=== PATIENT | male | born 1950 ===

== ENCOUNTER 2023-02-01 20:27 | Emergency (ER) | payer OTHER, MEDICAID ==
[~2023-02-01 20:27] MED LIST: Dextrose 5 % And 0.9 % NaCl 1000 ml Bag ONE
[2023-02-01 21:01] LABS: Anisocytosis SLIGHT = 6-15 cells (100X) (0-5/hpf); Band 1 % (5-11); Eosinophils 1 % (0-10); Hemoglobin 8.7 g/dL (14.0-18.0); Lymphocytes 12 % (21-51); MDiff Complete? YES; Mean Corpuscular HGB CONC 30.9 g/dL (32.0-36.0); Mean Corpuscular Hemoglobin 25.4 pg (27.0-31.0); Mean Corpuscular Volume 82.3 fl (78.0-98.0); Mean Platelet Volume 8.8 fL (7.4-10.4); Monocytes 6 % (0-10); Neutrophil 80 % (42-75); Ovalocytes SLIGHT = 2-5 cells (100X) (0-1/hpf); Platelet Adequacy Comment Appears Adequate; Platelet Count 345 10x3/uL (130-400); Red Blood Cell (RBC) Count 3.41 mill/uL (4.70-6.10)
[2023-02-01 21:09] LABS: ALT (SGPT) 8 U/L (8-55); AST (SGOT) 11 U/L (5-34); Albumin 3.6 g/dL (3.4-4.8); Alkaline Phosphatase 58 U/L (40-110); Anion Gap 17 mmol/L (10-20); BUN (Urea Nitrogen) 10 mg/dL (8.4-25.7); Bilirubin, Total 0.3 mg/dL (0.2-1.2); CK (CPK) 19 U/L (30-200); Calc. Creatinine Clearance 0 mL/min (70-130); Calcium 8.5 mg/dL (7.8-10.44); Carbon Dioxide 19 mmol/L (23-31); Chloride 106 mmol/L (98-107); Estimated GFR 59; Globulin 3.7 g/dL (2.4-3.5); Glucose 81 mg/dL (83-110); Potassium 4.1 mmol/L (3.5-5.1); Protein, Total 7.3 g/dL (5.8-8.1)
[2023-02-01 21:58] LABS: Sodium 138 mmol/L (136-145)
== END 2023-02-01 22:45 | disposition home or self-care (01) ==
LOC: MADERS 20:27
DX: E16.2 Hypoglycemia, unspecified (principal); D64.9 Anemia, unspecified; I10 Essential (primary) hypertension; E03.9 Hypothyroidism, unspecified
CPT/HCPCS: 36415; 36416; 70450; 71045; 80053; 80307; 82550; 84443; 84484; 85025; 93005; 96360; J7042

== ENCOUNTER 2023-05-15 14:10 | Inpatient (IN) | payer OTHER ==
[2023-05-15] MEDS ORDERED: Dextrose 50% Abboject 50 ML SYRINGE SLOW IVP PRN (18:17)
[2023-05-15] MEDS ORDERED: Glucagon 1 MG/ML KIT IM PRN (18:17)
[2023-05-15] MEDS: Atorvastatin Calcium 10 MG TAB PO SCH (21:30)
[2023-05-15] MEDS ORDERED: FLU VACC QS2023(65UP)/MF59C/PF 60 MCG/0.5 ML SYRINGE IM ONE (22:00)
[2023-05-16] MEDS: Levothyroxine Sodium 75 MCG TAB PO SCH (05:00)
[2023-05-16] MEDS: Lisinopril 5 MG TAB PO SCH (09:12)
[2023-05-16] MEDS: Folic Acid 1 MG TAB PO SCH (09:13)
[2023-05-16] MEDS: Thiamine 100 MG TAB PO SCH (09:13)
[2023-05-16] MEDS: Empagliflozin 10 MG TAB PO SCH (09:13)
[2023-05-16] MEDS: Multivit, Therapeutic 1 TAB PO SCH (09:13)
[2023-05-16] MEDS: Acetaminophen ER (8hr) 650 MG TAB PO PRN ×2 (10:57→20:39)
[2023-05-16] MEDS ORDERED: FLU VACC QS2023(65UP)/MF59C/PF 60 MCG/0.5 ML SYRINGE IM ONE (12:00)
[2023-05-16] MEDS: Atorvastatin Calcium 10 MG TAB PO SCH (20:39)
[2023-05-17] MEDS: Levothyroxine Sodium 75 MCG TAB PO SCH (05:05)
[2023-05-17 05:41] LABS: Hematocrit 27.3 % (42.0-52.0); Hemoglobin 8.7 g/dL (14.0-18.0); Mean Corpuscular HGB CONC 31.8 g/dL (32.0-36.0); Mean Corpuscular Hemoglobin 27.6 pg (27.0-31.0); Mean Platelet Volume 9.9 fL (7.4-10.4); Platelet Count 197 10x3/uL (130-400); Red Blood Cell (RBC) Count 3.14 mill/uL (4.70-6.10); White Blood Cell (WBC) Count 5.4 10x3/uL (4.8-10.8)
[2023-05-17 06:00] LABS: Anion Gap 12 mmol/L (10-20); BUN (Urea Nitrogen) 14 mg/dL (8.4-25.7); Calc. Creatinine Clearance 72 mL/min (70-130); Calcium 8.2 mg/dL (7.8-10.44); Carbon Dioxide 22 mmol/L (23-31); Chloride 113 mmol/L (98-107); Estimated GFR 90; Glucose 94 mg/dL (83-110); Potassium 4.1 mmol/L (3.5-5.1); Sodium 143 mmol/L (136-145)
[2023-05-17] MEDS: Folic Acid 1 MG TAB PO SCH (08:49)
[2023-05-17] MEDS: Empagliflozin 10 MG TAB PO SCH (08:50)
[2023-05-17] MEDS: Lisinopril 5 MG TAB PO SCH (08:50)
[2023-05-17] MEDS: Thiamine 100 MG TAB PO SCH (08:50)
[2023-05-17] MEDS: Multivit, Therapeutic 1 TAB PO SCH (09:00)
[2023-05-17] MEDS: Acetaminophen ER (8hr) 650 MG TAB PO PRN (11:17)
[2023-05-17] MEDS: Atorvastatin Calcium 10 MG TAB PO SCH (20:25)
[2023-05-18] MEDS: Levothyroxine Sodium 75 MCG TAB PO SCH (05:52)
[2023-05-18] MEDS: Lisinopril 5 MG TAB PO SCH (09:15)
[2023-05-18] MEDS: Multivit, Therapeutic 1 TAB PO SCH (09:15)
[2023-05-18] MEDS: Folic Acid 1 MG TAB PO SCH (09:15)
[2023-05-18] MEDS: Thiamine 100 MG TAB PO SCH (09:15)
[2023-05-18] MEDS: Empagliflozin 10 MG TAB PO SCH (09:15)
[2023-05-18] MEDS: Acetaminophen ER (8hr) 650 MG TAB PO PRN (09:35)
[2023-05-18] MEDS ORDERED: FLU VACC QS2023(65UP)/MF59C/PF 60 MCG/0.5 ML SYRINGE IM ONE (18:15)
[2023-05-18] MEDS: Atorvastatin Calcium 10 MG TAB PO SCH (20:10)
[2023-05-19] MEDS: Levothyroxine Sodium 75 MCG TAB PO SCH (05:32)
[2023-05-19] MEDS: Thiamine 100 MG TAB PO SCH (09:13)
[2023-05-19] MEDS: Folic Acid 1 MG TAB PO SCH (09:13)
[2023-05-19] MEDS: Empagliflozin 10 MG TAB PO SCH (09:13)
[2023-05-19] MEDS: Acetaminophen ER (8hr) 650 MG TAB PO PRN (09:13)
[2023-05-19] MEDS: Multivit, Therapeutic 1 TAB PO SCH (09:13)
[2023-05-19] MEDS: Lisinopril 5 MG TAB PO SCH (09:15)
[2023-05-19] MEDS ORDERED: Lantiseptic Ointment 130 GM JAR TOP PRN (11:58)
[2023-05-19] MEDS: Atorvastatin Calcium 10 MG TAB PO SCH (20:12)
[2023-05-19] MEDS: Lantiseptic Ointment 130 GM JAR TOP SCH (20:12)
[2023-05-20] MEDS: Levothyroxine Sodium 75 MCG TAB PO SCH (05:04)
[2023-05-20] MEDS: Acetaminophen ER (8hr) 650 MG TAB PO PRN (05:32)
[2023-05-20] MEDS: Multivit, Therapeutic 1 TAB PO SCH (08:47)
[2023-05-20] MEDS: Lisinopril 5 MG TAB PO SCH ×2 (08:47→08:55)
[2023-05-20] MEDS: Folic Acid 1 MG TAB PO SCH (08:47)
[2023-05-20] MEDS: Empagliflozin 10 MG TAB PO SCH (08:47)
[2023-05-20] MEDS: Thiamine 100 MG TAB PO SCH (08:47)
[2023-05-20] MEDS: Lantiseptic Ointment 130 GM JAR TOP SCH ×2 (08:48→20:04)
[2023-05-20 13:28] LABS: Hematocrit 30.8 % (42.0-52.0); Hemoglobin 9.7 g/dL (14.0-18.0); Mean Corpuscular HGB CONC 31.7 g/dL (32.0-36.0); Mean Corpuscular Hemoglobin 28.4 pg (27.0-31.0); Mean Corpuscular Volume 89.6 fl (78.0-98.0); Mean Platelet Volume 10.1 fL (7.4-10.4); Platelet Count 250 10x3/uL (130-400); RBC Distribution Width 23.2 % (11.5-14.5); Red Blood Cell (RBC) Count 3.43 mill/uL (4.70-6.10); White Blood Cell (WBC) Count 6.2 10x3/uL (4.8-10.8)
[2023-05-20 13:33] LABS: Anion Gap 15 mmol/L (10-20); BUN (Urea Nitrogen) 20 mg/dL (8.4-25.7); Calc. Creatinine Clearance 77 mL/min (70-130); Carbon Dioxide 23 mmol/L (23-31); Chloride 108 mmol/L (98-107); Potassium 4.2 mmol/L (3.5-5.1); Sodium 142 mmol/L (136-145)
[2023-05-20 13:34] LABS: Calcium 8.7 mg/dL (7.8-10.44); Estimated GFR 92; Glucose 82 mg/dL (83-110)
[2023-05-20] MEDS: Atorvastatin Calcium 10 MG TAB PO SCH (20:04)
[2023-05-21] MEDS: Levothyroxine Sodium 75 MCG TAB PO SCH (05:28)
[2023-05-21] MEDS: Multivit, Therapeutic 1 TAB PO SCH (07:59)
[2023-05-21] MEDS: Thiamine 100 MG TAB PO SCH (07:59)
[2023-05-21] MEDS: Folic Acid 1 MG TAB PO SCH (07:59)
[2023-05-21] MEDS: Lantiseptic Ointment 130 GM JAR TOP SCH ×2 (07:59→20:23)
[2023-05-21] MEDS: Empagliflozin 10 MG TAB PO SCH (07:59)
[2023-05-21] MEDS: Mag-Al Plus 1200 MG/1200 MG/120 MG/30 ML UDCUP PO PRN (13:39)
[2023-05-21] MEDS: Atorvastatin Calcium 10 MG TAB PO SCH (20:23)
[2023-05-22] MEDS: Levothyroxine Sodium 75 MCG TAB PO SCH (05:48)
[2023-05-22] MEDS: Acetaminophen 325 MG TAB PO PRN (08:29)
[2023-05-22] MEDS: Multivit, Therapeutic 1 TAB PO SCH (08:30)
[2023-05-22] MEDS: Lantiseptic Ointment 130 GM JAR TOP SCH ×2 (08:30→20:35)
[2023-05-22] MEDS: Folic Acid 1 MG TAB PO SCH (08:30)
[2023-05-22] MEDS: Empagliflozin 10 MG TAB PO SCH (08:30)
[2023-05-22] MEDS: Thiamine 100 MG TAB PO SCH (08:30)
[2023-05-22] MEDS: Atorvastatin Calcium 10 MG TAB PO SCH (20:34)
[2023-05-23] MEDS: Levothyroxine Sodium 75 MCG TAB PO SCH (05:39)
[2023-05-23] MEDS: Thiamine 100 MG TAB PO SCH (09:08)
[2023-05-23] MEDS: Multivit, Therapeutic 1 TAB PO SCH (09:08)
[2023-05-23] MEDS: Empagliflozin 10 MG TAB PO SCH (09:08)
[2023-05-23] MEDS: Folic Acid 1 MG TAB PO SCH (09:08)
[2023-05-23] MEDS: Lantiseptic Ointment 130 GM JAR TOP SCH ×2 (09:09→20:07)
[2023-05-23] MEDS: Acetaminophen 325 MG TAB PO PRN ×2 (11:59→20:06)
[2023-05-23] MEDS: Atorvastatin Calcium 10 MG TAB PO SCH (20:06)
[2023-05-24] MEDS: Levothyroxine Sodium 75 MCG TAB PO SCH (05:26)
[2023-05-24] MEDS: Lantiseptic Ointment 130 GM JAR TOP SCH ×2 (08:31→20:53)
[2023-05-24] MEDS: Empagliflozin 10 MG TAB PO SCH (08:31)
[2023-05-24] MEDS: Folic Acid 1 MG TAB PO SCH (08:31)
[2023-05-24] MEDS: Multivit, Therapeutic 1 TAB PO SCH (08:31)
[2023-05-24] MEDS: Thiamine 100 MG TAB PO SCH (08:31)
[2023-05-24 18:40] LABS: Hematocrit 30.6 % (42.0-52.0); Hemoglobin 9.2 g/dL (14.0-18.0); MDiff Complete? YES; Mean Corpuscular HGB CONC 30.3 g/dL (32.0-36.0); Mean Corpuscular Hemoglobin 26.6 pg (27.0-31.0); Mean Corpuscular Volume 87.8 fl (78.0-98.0); Mean Platelet Volume 8.8 fL (7.4-10.4); Platelet Count 340 10x3/uL (130-400); RBC Distribution Width 21.1 % (11.5-14.5); Red Blood Cell (RBC) Count 3.48 mill/uL (4.70-6.10); White Blood Cell (WBC) Count 6.8 10x3/uL (4.8-10.8)
[2023-05-24 18:41] LABS: Anisocytosis MODERATE=16-30 cells (100X) (0-5/hpf); Band 2 % (5-11); Elliptocytes SLIGHT = 2-5 cells (100X) (0-1/hpf); Eosinophils 2 % (0-10); Hypochromia SLIGHT = 6-15 cells (100X) (0-5/hpf); Lymphocytes 10 % (21-51); Monocytes 5 % (0-10); Neutrophil 76 % (42-75); Platelet Adequacy Comment Appears Adequate; Poikilocytosis SLIGHT = 6-15 cells (100X) (0-5/hpf); Polychromasia SLIGHT = 2-3 cells (100X) (0-2/hpf); Reactive Lymphocytes 5 % (0-10)
[2023-05-24] MEDS: Acetaminophen 325 MG TAB PO PRN (20:52)
[2023-05-24] MEDS: Atorvastatin Calcium 10 MG TAB PO SCH (20:52)
[2023-05-25] MEDS: Levothyroxine Sodium 75 MCG TAB PO SCH (05:43)
[2023-05-25] MEDS: Acetaminophen 325 MG TAB PO PRN (08:28)
[2023-05-25] MEDS: Folic Acid 1 MG TAB PO SCH (08:28)
[2023-05-25] MEDS: Multivit, Therapeutic 1 TAB PO SCH (08:28)
[2023-05-25] MEDS: Thiamine 100 MG TAB PO SCH (08:28)
[2023-05-25] MEDS: Lantiseptic Ointment 130 GM JAR TOP SCH ×2 (08:29→20:21)
[2023-05-25] MEDS: Empagliflozin 10 MG TAB PO SCH (08:29)
[2023-05-25] MEDS: Atorvastatin Calcium 10 MG TAB PO SCH (20:21)
[2023-05-26] MEDS: Levothyroxine Sodium 75 MCG TAB PO SCH (05:58)
[2023-05-26] MEDS: Empagliflozin 10 MG TAB PO SCH (08:28)
[2023-05-26] MEDS: Multivit, Therapeutic 1 TAB PO SCH (08:28)
[2023-05-26] MEDS: Acetaminophen 325 MG TAB PO PRN (08:28)
[2023-05-26] MEDS: Thiamine 100 MG TAB PO SCH (08:28)
[2023-05-26] MEDS: Lantiseptic Ointment 130 GM JAR TOP SCH ×2 (08:29→21:16)
[2023-05-26] MEDS: Folic Acid 1 MG TAB PO SCH (08:29)
[2023-05-26] MEDS: Atorvastatin Calcium 10 MG TAB PO SCH (21:16)
[2023-05-27] MEDS: Mag-Al Plus 1200 MG/1200 MG/120 MG/30 ML UDCUP PO PRN (02:49)
[2023-05-27] MEDS: Levothyroxine Sodium 75 MCG TAB PO SCH (05:09)
[2023-05-27 05:41] LABS: Hematocrit 29.2 % (42.0-52.0); Hemoglobin 8.9 g/dL (14.0-18.0); Mean Corpuscular HGB CONC 30.6 g/dL (32.0-36.0); Mean Corpuscular Hemoglobin 26.7 pg (27.0-31.0); Mean Corpuscular Volume 87.2 fl (78.0-98.0); Mean Platelet Volume 9.2 fL (7.4-10.4); Platelet Count 343 10x3/uL (130-400); RBC Distribution Width 20.8 % (11.5-14.5); Red Blood Cell (RBC) Count 3.35 mill/uL (4.70-6.10); White Blood Cell (WBC) Count 6.9 10x3/uL (4.8-10.8)
[2023-05-27] MEDS: Acetaminophen 325 MG TAB PO PRN (05:43)
[2023-05-27] MEDS: Empagliflozin 10 MG TAB PO SCH (08:52)
[2023-05-27] MEDS: Thiamine 100 MG TAB PO SCH (08:52)
[2023-05-27] MEDS: Folic Acid 1 MG TAB PO SCH (08:52)
[2023-05-27] MEDS: Lantiseptic Ointment 130 GM JAR TOP SCH ×2 (08:52→20:37)
[2023-05-27] MEDS: Multivit, Therapeutic 1 TAB PO SCH (08:52)
[2023-05-27 10:53] VITALS: BMI 22.6
[2023-05-27] MEDS: Atorvastatin Calcium 10 MG TAB PO SCH (20:37)
[2023-05-28] MEDS: Levothyroxine Sodium 75 MCG TAB PO SCH (05:38)
[2023-05-28 07:29] VITALS: BP 91/56; TEMP 98.6
[2023-05-28] MEDS: Multivit, Therapeutic 1 TAB PO SCH (07:55)
[2023-05-28] MEDS: Lantiseptic Ointment 130 GM JAR TOP SCH (07:55)
[2023-05-28] MEDS: Empagliflozin 10 MG TAB PO SCH (07:55)
[2023-05-28] MEDS: Folic Acid 1 MG TAB PO SCH (07:55)
[2023-05-28] MEDS: Thiamine 100 MG TAB PO SCH (07:55)
[2023-05-28] MEDS: Acetaminophen 325 MG TAB PO PRN (07:55)
== END 2023-05-28 11:24 | DRG 948 ==
LOC: MADMS 17:19
PROVIDERS: ADMIT Family Medicine; ATTEND Family Medicine
DX: R53.81 Other malaise (principal); C21.0 Malignant neoplasm of anus, unspecified; I82.403 Acute embolism and thrombosis of unspecified deep veins of lower extremity, bilateral; K62.5 Hemorrhage of anus and rectum; I50.22 Chronic systolic (congestive) heart failure; I42.9 Cardiomyopathy, unspecified; I11.0 Hypertensive heart disease with heart failure; E27.8 Other specified disorders of adrenal gland; E03.9 Hypothyroidism, unspecified; I25.10 Atherosclerotic heart disease of native coronary artery without angina pectoris; E78.5 Hyperlipidemia, unspecified; I25.2 Old myocardial infarction; Z98.890 Other specified postprocedural states; Z82.49 Family history of ischemic heart disease and other diseases of the circulatory system; Z79.899 Other long term (current) drug therapy; D63.0 Anemia in neoplastic disease; R33.9 Retention of urine, unspecified
CPT/HCPCS: 36415; 36416; 80048; 85025; 85027; 90471; 90694; 97602; G0008

== ENCOUNTER 2023-06-07 01:11 | Emergency (ER) | payer OTHER ==
[2023-06-07] MEDS ORDERED: Cefepime 1 GM VIAL ONE (01:57)
[2023-06-07] MEDS ORDERED: Sodium Chloride 0.9% 100 ML ONE (01:57)
[2023-06-07] MEDS ORDERED: Vancomycin 1 GM VIAL ONE (01:57)
[2023-06-07 01:58] LABS: Bilirubin Negative (Negative); Blood, Urine Moderate (Negative); Glucose, Urine (Dipstick) >=1000 mg/dL (Negative); Ketone, Urine Negative (Negative); Leukocyte Large (Negative); Nitrite Negative (Negative); Protein, Urine (Dipstick) > or equal to 300 mg/dL (Neg-Trace); Urobilinogen 0.2 mg/dL (Less than 2)
[2023-06-07] MEDS ORDERED: Sodium Chloride 0.9% 250 ML 250 ML ONE (01:58)
[2023-06-07 02:01] LABS: Bacteria/HPF 4+ HPF (None Seen); CAUTI Indications for Culture Fever or rigors; Clarity Turbid (Clear); Squamous Epithelial 0-3 HPF (0-3); WBC/HPF Greater than 50 HPF (0-3)
[2023-06-07 02:02] LABS: Urine Culture Reflex Yes Yes
[2023-06-07 02:11] LABS: Anisocytosis SLIGHT = 6-15 cells (100X) (0-5/hpf); Band 3 % (5-11); Hematocrit 24.7 % (42.0-52.0); Hemoglobin 7.8 g/dL (14.0-18.0); Hypochromia SLIGHT = 6-15 cells (100X) (0-5/hpf); Lymphocytes 12 % (21-51); MDiff Complete? YES; Mean Corpuscular HGB CONC 31.4 g/dL (32.0-36.0); Mean Corpuscular Hemoglobin 26.3 pg (27.0-31.0); Mean Corpuscular Volume 83.8 fl (78.0-98.0); Mean Platelet Volume 8.9 fL (7.4-10.4); Monocytes 5 % (0-10); Neutrophil 80 % (42-75); Ovalocytes SLIGHT = 2-5 cells (100X) (0-1/hpf); Platelet Adequacy Comment Appears Adequate; Platelet Count 317 10x3/uL (130-400); Polychromasia SLIGHT = 2-3 cells (100X) (0-2/hpf); RBC Distribution Width 19.2 % (11.5-14.5); Red Blood Cell (RBC) Count 2.95 mill/uL (4.70-6.10); White Blood Cell (WBC) Count 12.4 10x3/uL (4.8-10.8)
[2023-06-07 02:13] LABS: ALT (SGPT) 13 U/L (8-55); AST (SGOT) 18 U/L (5-34); Albumin 2.5 g/dL (3.4-4.8); Alkaline Phosphatase 56 U/L (40-110); Anion Gap 15 mmol/L (10-20); BUN (Urea Nitrogen) 18 mg/dL (8.4-25.7); Bilirubin, Total 0.4 mg/dL (0.2-1.2); Calc. Creatinine Clearance 0 mL/min (70-130); Calcium 7.4 mg/dL (7.8-10.44); Carbon Dioxide 17 mmol/L (23-31); Chloride 109 mmol/L (98-107); Estimated GFR 80; Globulin 3.3 g/dL (2.4-3.5); Glucose 151 mg/dL (83-110); Lipase 33 U/L (8-78); Potassium 3.7 mmol/L (3.5-5.1); Protein, Total 5.8 g/dL (5.8-8.1); Sodium 137 mmol/L (136-145); Troponin I 0.134 ng/mL (< 0.028)
[2023-06-07] MEDS ORDERED: Sodium Chloride 0.9% 1,000 ML ONE (02:58)
[2023-06-07] MEDS ORDERED: Aspirin Chewable 81 MG TAB ONE (04:24)
== END 2023-06-07 04:58 | disposition short-term general hospital (02) ==
LOC: MADERS 01:11
DX: A41.9 Sepsis, unspecified organism (principal); D64.9 Anemia, unspecified; I11.0 Hypertensive heart disease with heart failure; I50.9 Heart failure, unspecified; I74.09 Other arterial embolism and thrombosis of abdominal aorta; E03.9 Hypothyroidism, unspecified; Z79.899 Other long term (current) drug therapy
CPT/HCPCS: 36430; 71045; 71275; 80053; 81001; 83605; 83690; 83880; 84484; 85025; 86850; 86900; 86901; 86920; 87040; 87077; 87086; 87186; 93005; P9016; 96360; 96365; 96366; 96368; J0692; J3370; J7050